=== PATIENT | male | born 1990 | race Caucasian/White ===

== ENCOUNTER → 2019-09-28 12:31 | Outpatient (CLI) | payer MEDICAID, SELFPAY ==
[2019-09-28 12:50] LABS: Basophils # 0.1 K/mm3 (0-0.2); Basophils % 0.6 % (0.1-2.0); Eosinophils # 0.2 K/mm3 (0.0-0.4); Eosinophils % 1.5 % (0.1-12.0); Hematocrit 48.3 % (42.0-52.0); Hemoglobin 16.5 g/dL (14.1-18.0); Lymphocytes # 4.5 K/mm3 (0.7-4.5); Lymphocytes % 44.8 % (10-50); Mean Corpuscular HGB Conc 34.2 g/dL (31.8-35.4); Mean Corpuscular Hemoglobin 33.4 pg (27.0-31.2); Mean Corpuscular Volume 97.5 fl (80-94); Mean Platelet Volume 8.6 fl (7.4-10.4); Monocytes # 0.4 K/mm3 (0.1-1.0); Monocytes % 3.9 % (1.7-9.3); Neutrophils # 4.9 K/mm3 (1.8-7.8); Neutrophils % 49.1 % (37.0-80.0); Platelet Count 275 K/mm3 (142-424); Red Blood Count 4.96 M/mm3 (4.60-6.20); Red Cell Distribution Width 13.8 % (11.5-17.5)
[2019-09-28 15:11] LABS: Anion Gap 13.6 mEq/L (5-15); Blood Urea Nitrogen 10 mg/dl (9-20); Calcium 9.6 mg/dl (8.4-10.2); Carbon Dioxide 28 mmol/L (22.0-30.0); Chloride 102 mmol/L (98-107); Estimated Glomerular Filt Rate 114 ml/min (>60); GFR (African American) 137 ML/MIN (>60); Glucose 92 mg/dl (74-100); Potassium 4.6 mmoL/L (3.5-5.1); Sodium 139 mmol/L (136-145)
[2019-09-28 16:24] LABS: Coronavirus 19 IgG Antibody Negative (Negative); Coronavirus 19 IgM Antibody Negative (Negative)
== END ==
PROVIDERS: Visit Provider Urology
DX: Z01.818 Encounter for other preprocedural examination (principal); N47.1 Phimosis
CPT/HCPCS: 36415; 80048; 85025; 86328

== ENCOUNTER 2019-09-30 07:13 | Day surgery (SDC) | payer MEDICAID, SELFPAY ==
[2019-09-29 15:06] VITALS: BMI 38.3
[2019-09-30] VITALS (13 sets, daily range): BP systolic 103–134; BP diastolic 54–86; PULSE 63–84; RESP 16–19; TEMP 6.1–43; O2SAT 92–97
--- NOTE | 2019-09-30 09:45 | HMH.ANESCL ---
[facility] Anesthesia Checklist - Patient Identification Patient Identification: Arm Band - Structural Data Admitted From: Home Planned Operative Procedure/s: circumcision Consent for Planned Operative Procedure(s) Verified: Yes Verified Documents: Surgical Consent, History and Physical - NPO Status Verified Time NPO: 00:00 - Additional verifications Anesthesia Reactions: No Hx Blood Transfusions: No Blood Transfusion Reaction: No - Airway Assessment C-Spine Mobility Assessed: Yes (mp2) TMJ Mobility Assessed: Yes Dentition: Good Dentition - Neurological Assessment Level of Consciousness: Awake, Alert - Anesthesia Plan Anesthesia Risk discussed: Yes Anesthesia Plan: Verified ASA Class: II Anesthesia Type: General [facility] History I have reviewed the patient's past medical history: Yes Medical History: Reports:: Ulcer Denies:: Cancer, Diabetes Mellitus Type 1, Diabetes Mellitus Type 2, Internal Pacemaker, MRSA, Seizures *Have you ever received a pneumonia vaccine?: No *Have you received a flu vaccine this season?: No Other Medical History: Denies: Blood Transfusion Reaction Anesthesia experience/problems:: nac Other Surgeries: Yes: No Previous Surgery. No: Pacemaker Amputation: No Fractures: No - *Social History Educational Level: Completed High School Smoking Status: Former smoker Tobacco Type: cigarettes #Yrs smoked (if former smoker): 1 Smoking End Date: 04/13/2009 Alcohol Intake: current Alcohol Intake Frequency:: holidays/special occasions only Substance Use Type: denies use *Occupational Status:: employed Housing: house Household Members: spouse *Travel in the last 8 weeks: None Family Hx:: Diabetes, Hypertension
--- NOTE | 2019-09-30 10:31 | P.PN_ITS ---
[facility] Anesthesia Record Part I Intake, IV Amount: 800 Estimated blood loss (mL): 5 Urine output (mL): 0 Blood Pressure: 106/76 SaO2: 92 Pulse Rate: 78 Respiratory Rate: 16 Temperature: 98.3 F Patient is:: Drowsy, Stable Stable to PACU at:: 10:30
--- NOTE | 2019-09-30 13:08 | HMH.OPNOTE ---
Date of procedure: 09/30/19 Pre-op Diagnosis:: Phimosis Post-op Diagnosis:: Severe phimosis with glanular adhesions Procedure performed:: Sleeve circumcision with lysis of adhesions Surgeon:: Gage Dela Cruz MD CHEMICAL PRODUCTION MACHINE OPERATOR:: Aron Del Castillo Anesthesia: GETA Estimated blood loss (mL): 5 Clinical Note:: 29-year-old male with a long history of penile phimosis. He has only a 2 to 3 mm penile opening that is non-retractable. Operative findings:: Severe phimosis with glanular adhesions Operative note:: Patient taken to the operating room after informed consent was obtained. Placed on the operating table in the supine position and general anesthesia administered. Preoperative antibiotics and sequential compression devices were placed. He was prepped and draped in the standard surgical fashion. Local anesthetic was placed in a ringlike fashion around the base of the penis with 30 cc of local. The shipley of the glans was marked with a marking pen along the outer skin. This was done while pressing down on the suprapubic fat pad to approximate needed penile length. The dorsal foreskin was then clamped back to the marked line of incision with the straight clamp left on for 30 minutes. Was then released and the skin was incised with scissors. After incising the skin I was still unable to retract the foreskin past the glans and I open the skin dorsally little bit more after clamping the scan and underlying tissue. At this point I was able to retract the foreskin past the glans and there was some glanular adhesions present. These were bluntly taking a.m. by traction. Due to the length of time the phimosis as been present there was not a whole lot of preputial skin neck could be taken down. At this point there was some adherent tissue ventrally and a freehand circumcision was unable to be performed so a sleeve circumcision was performed in a when had completed the skin incision on the preputial area ventrally and then brought the foreskin back over the penis and incised the skin in a circumferential fashion. Then connected the 2 incisions and removed the skin in a circumferential fashion with the Bovie. Hemostasis was achieved in a circumferential fashion. Dorsally there was not a lot of preputial skin but a few millimeters were present and adequate enough to sew the skin back. Skin was then approximated back to the preputial skin with 4-0 chromic's and a simple interrupted fashion. A Vaseline impregnated gauze was placed around the incision and gauze was then wrapped around that and taped securely. Patient tolerated the procedure well sponge needle instrument counts are correct in the case. He was discharged to recovery room in stable condition and with routine instructions and medications. Condition: stable Disposition: PACU Specimens:: Penile foreskin Complications:: None
--- NOTE | 2019-09-30 16:37 | HMH.ANESII ---
[facility] Anesthesia Record Part II Discharge Time: 11:03 Destination: Surgical Day Care (OP Surgery) PACU nurse assessment reviewed?: Yes Patient Condition:: Good Anesthesia Complications:: None Swallowing reflex intact?: Yes Cyanosis?: No Blood Pressure: 103/54 Pulse Rate: 69 Temperature: 97.3 F Mental Status: Alert & Oriented Pain level:: 0 Nausea and/or vomitting:: None Intake, IV Amount: 0
== END 2019-09-30 11:38 | disposition home or self-care (01) ==
LOC: OR 07:16
PROVIDERS: Visit Provider Urology
PROC: (CPT 54150; principal; 2019-09-30 09:00)
DX: N47.1 Phimosis (principal); Z79.82 Long term (current) use of aspirin; Z87.891 Personal history of nicotine dependence; Z83.3 Family history of diabetes mellitus; Z82.49 Family history of ischemic heart disease and other diseases of the circulatory system
CPT/HCPCS: 54150; 96374; J2405

== ENCOUNTER → 2021-05-25 11:50 | Outpatient (CLI) | payer OTHER, SELFPAY | PROVIDERS: PCP Urology; Visit Provider Urology | DX: Z01.812 Encounter for preprocedural laboratory examination (principal); Z11.52 Encounter for screening for COVID-19; Z30.2 Encounter for sterilization | CPT/HCPCS: C9803; U0003; U0005 ==

== ENCOUNTER 2021-05-27 07:23 | Day surgery (SDC) | payer OTHER, SELFPAY ==
[2021-05-23 12:12] VITALS: BMI 43.9
[2021-05-27 07:41] VITALS: BP 109/69; PULSE 79; RESP 16; TEMP 36.4; O2SAT 97
--- NOTE | 2021-05-27 07:58 | HMH.ANESCL ---
[facility] Anesthesia Checklist - Patient Identification Patient Identification: Arm Band - Structural Data Admitted From: Home Planned Operative Procedure/s: Vasectomy Consent for Planned Operative Procedure(s) Verified: Yes - NPO Status Verified Time NPO: 00:00 - Additional verifications Anesthesia Reactions: No Hx Blood Transfusions: No Blood Transfusion Reaction: No - Airway Assessment C-Spine Mobility Assessed: Yes TMJ Mobility Assessed: Yes Dentition: Good Dentition - Neurological Assessment Level of Consciousness: Awake Hx Seizures: No Numbness or tingling in extremities: No - Anesthesia Plan Anesthesia Risk discussed: Yes Anesthesia Plan: Verified ASA Class: II Anesthesia Type: General [facility] History I have reviewed the patient's past medical history: Yes Medical History: Reports:: Diabetes Mellitus Type 2, Ulcer Denies:: Cancer, Diabetes Mellitus Type 1, Internal Pacemaker, MRSA, Seizures *Have you ever received a pneumonia vaccine?: No *Have you received a flu vaccine this season?: No Other Medical History: Reports: Other (Diverticulitis). Denies: Blood Transfusion Reaction Anesthesia experience/problems:: None Other Surgeries: Yes: No Previous Surgery, Colonoscopy. No: Pacemaker Amputation: No Fractures: Yes (nose) - *Social History Last grade of school completed: High school graduate Smoking Status: Former smoker Tobacco Type: cigarettes #Yrs smoked (if former smoker): 1 Alcohol Intake: never Alcohol Intake Frequency:: holidays/special occasions only Substance Use Type: denies use *Occupational Status:: unemployed Housing: house Household Members: children *Travel in the last 8 weeks: None Family Hx:: Diabetes
[2021-05-27 10:25] VITALS: BP 99/62; PULSE 91; RESP 16; TEMP 36.3; O2SAT 92
[2021-05-27 10:40] VITALS: BP 118/90; PULSE 85; RESP 16; O2SAT 98
--- NOTE | 2021-05-27 10:46 | P.OP_ITS ---
Date of procedure: 05/27/21 Pre-op Diagnosis:: Sterilization Post-op Diagnosis:: Sterilization Procedure performed:: Vasectomy Surgeon:: Gage Dela Cruz MD PRACTICE MANAGERS:: Aron Del Castillo Anesthesia: MAC Estimated blood loss (mL): 2 Clinical Note:: Patient is a 31-year-old male recently seen for vasectomy consultation. He presents for the procedure today. Operative findings:: Scrotum and testicles were within normal limits. Vasectomy was performed under local MAC without complication. Operative note:: Patient taken to the operating room after informed consent was obtained. He was placed on the operating table in the supine position and monitored anesthesia care administered. He was prepped and draped in the standard surgical fashion. The scrotum and testicles were within normal limits by examination. The left vas was brought up to the midline raphae and local anesthetic placed under the skin and around the vas. Incision was then made in the midline raphae and a tenaculum was placed onto the vas deferens and brought up through the incision. The vasal sheath was then incised and the vas proper was isolated from its surrounding tissues and blood vessels. 1 Hemoclip was placed distally and 2 clips were placed proximally. A 1 cm segment excised and the ends of the vas were cauterized. Hemostasis was achieved and the left vas dropped back into the left hemiscrotum. The identical procedure was performed on the right side. As dropped back into the hemiscrotum and a 2-0 chromic placed to close the skin in a horizontal mattress fashion. Compression dressing applied and jockstrap. Patient tolerated procedure well no complications. Condition: stable Disposition: same day Specimens:: Vas segments were not sent to pathology Complications:: None
[2021-05-27 10:55] VITALS: BP 128/94; PULSE 81; RESP 16; O2SAT 99
[2022-01-09 10:57] LABS: POC Glucose,Bedside 194 (70-110)
== END 2021-05-27 10:56 | disposition home or self-care (01) ==
LOC: OR 07:24
PROVIDERS: PCP Urology; Visit Provider Urology
PROC: (CPT 55250; principal; 2021-05-27 09:00)
DX: E11.9 Type 2 diabetes mellitus without complications (principal); Z30.2 Encounter for sterilization
CPT/HCPCS: 55250; 82962; 96374